=== PATIENT | male | born 1960 | race Caucasian/White ===

== ENCOUNTER 2017-03-16 08:14 | Emergency (ER) | payer SELFPAY ==
[~2017-03-16] VITALS: Ht 167.6 cm; Wt 68.8 kg
[2017-03-16 08:25] VITALS: BP 118/69
[2017-03-16] MEDS ORDERED: KETOROLAC 30 MG/1 ML IM ONE (09:00)
[2017-03-16] MEDS ORDERED: TOPI50TA77 PO (09:00)
[2017-03-16] MEDS ORDERED: DIPHENHYDRAMINE 25 MG CAPSULE PO ONE (09:00)
[2017-03-16] MEDS ORDERED: DIPHENHYDRAMINE 50 MG/ML, 1ML ONE (09:17)
[2017-03-16] MEDS ORDERED: METOCLOPRAMIDE 5 MG/ML, 2ML ONE (09:17)
[2017-03-16] MEDS ORDERED: KETOROLAC 30 MG/1 ML ONE (09:17)
[2017-03-16] MEDS ORDERED: DIPHENHYDRAMINE 25 MG CAPSULE ONE (09:23)
[2017-03-16] MEDS ORDERED: METOCLOPRAMIDE 10MG TABLET PO SCH (11:00)
== END 2017-03-16 10:10 | disposition home or self-care (01) ==
LOC: ED 10:03
DX: G43.919 Migraine, unspecified, intractable, without status migrainosus (principal); Z87.820 Personal history of traumatic brain injury
CPT/HCPCS: 96372; 99283; J1885; Q0163

== ENCOUNTER 2017-03-26 15:50 | Emergency (ER) | payer BC ==
[~2017-03-26] VITALS: Ht 167.6 cm; Wt 68.9 kg
[~2017-03-26 15:50] MED LIST: TOPI50TA77 PO
[2017-03-26 15:53] VITALS: BP 115/71
[2017-03-26] MEDS ORDERED: CEFTRIAXONE 250 MG IM ONE (16:30)
[2017-03-26] MEDS ORDERED: DOXYCYCLINE 100MG TABLET PO ONE (16:30)
== END 2017-03-26 16:29 | disposition home or self-care (01) ==
LOC: ED 16:23
DX: Z76.0 Encounter for issue of repeat prescription (principal); G43.709 Chronic migraine without aura, not intractable, without status migrainosus
CPT/HCPCS: 99283